=== PATIENT | female | born 1960 | race Caucasian/White ===

== ENCOUNTER 2021-07-16 06:36 | Day surgery (SDC) | payer OTHER ==
[2021-07-16] MEDS ORDERED: Propofol 200 MG/20 ML SDV IV ONE (06:37)
[2021-07-16] MEDS ORDERED: Lactated Ringers 1,000 ML IV SCH (06:45)
[2021-07-16] MEDS ORDERED: Sodium Chloride 0.9% 10 ML Syringe FLUSH PRN (06:45)
--- NOTE | 2021-07-16 08:34 | PCM.HP.2 ---
H&P History of Present Illness - General Date of Service: 07/16/21 Admit Problem/Dx: Admission Diagnosis/Problem Admission Diagnosis/Problem Colonoscopy Source of Information: Patient, Old Records History Limitations: Reports: No Limitations - History of Present Illness Initial Comments - Free Text/Narative: Here for colonoscopy - Related Data Allergies/Adverse Reactions: Allergies Allergy/AdvReac Type Severity Reaction Status Date / Time varenicline [From Chantix] Allergy Hives Verified 07/15/21 13:35 Home Medications: Home Meds Naproxen Sodium [Aleve] 220 mg PO ASDIRECTED PRN 07/15/21 [History] Multivitamin 1 tab PO DAILY 07/16/21 [History] Past Medical History HEENT History: Reports: Impaired Vision Cardiovascular History: Reports: None Respiratory History: Reports: None Gastrointestinal History: Reports: Colon Polyp, Diverticulosis Genitourinary History: Reports: None [employer] History: Reports: None Musculoskeletal History: Reports: Arthritis, Fracture Neurological History: Reports: None Psychiatric History: Reports: None Endocrine/Metabolic History: Reports: None Hematologic History: Reports: None Immunologic History: Reports: None Oncologic (Cancer) History: Reports: None Dermatologic History: Reports: None - Past Surgical History Head Surgeries/Procedures: Reports: None HEENT Surgical History: Reports: Other (See Below) Other HEENT Surgeries/Procedures: TOOTH EXTRACTION WITH CELLULITIS AND IV ABX Cardiovascular Surgical History: Reports: None Respiratory Surgical History: Reports: None GI Surgical History: Reports: Colonoscopy, EGD Female Surgical History: Reports: Cystoscopy, LEEP, Tubal Ligation Endocrine Surgical History: Reports: None Neurological Surgical History: Reports: None Musculoskeletal Surgical History: Reports: Arthroscopic Knee, Other (See Below) Other Musculoskeletal Surgeries/Procedures:: R KNEE ARTHROSCOPY 2013 Oncologic Surgical History: Reports: None Dermatological Surgical History: Reports: None Social & Family History - Tobacco Use Tobacco Use Status *Q: Current Every Day Tobacco User Years of Tobacco use: 40 Packs/Tins Daily: 0.5 - Caffeine Use Caffeine Use: Reports: Coffee - Recreational Drug Use Recreational Drug Use: No H&P Review of Systems - Review of Systems: Review Of Systems: Comprehensive ROS is negative, except as noted in HPI. Exam - Exam Exam: See Below - Vital Signs Vital Signs: Last Vital Signs Temp 97.7 F 07/16/21 08:23 Pulse 66 07/16/21 08:23 Resp 14 07/16/21 08:23 BP 93/50 L 07/16/21 08:23 Pulse Ox 97 07/16/21 08:23 Weight: 57 kg - Exam General: Alert, Oriented Lungs: Clear to Auscultation, Normal Respiratory Effort Cardiovascular: Regular Rate, Regular Rhythm GI/Abdominal Exam: Soft, Non-Tender Sepsis Event Note - Focused Exam Vital Signs: Vital Signs Temp Pulse Resp BP Pulse Ox 07/16/21 08:23 97.7 F 66 14 93/50 L 97 07/16/21 07:15 98.2 F 82 16 113/78 96 Problem List Initiated/Reviewed/Updated: Yes Orders Last 24hrs: Active Orders 24 hr Category Date Time Status Patient Status [ADT] Routine ADT 07/16/21 06:45 Active Patient to Empty Bladder [RC] ASDIRECTED Care 07/16/21 06:45 Active Verify Patient Consent Obtain [RC] ASDIRECTED Care 07/16/21 06:45 Active Nothing Per Oral Diet [DIET] Diet 07/16/21 Breakfast Ordered Lactated Ringers [Ringers, Lactated] 1,000 ml Med 07/16/21 06:45 Active IV ASDIRECTED Sodium Chloride 0.9% [Saline Flush] Med 07/16/21 06:45 Active 10 ml FLUSH ASDIRECTED PRN Peripheral IV Insertion Adult [OM.PC] Routine Oth 07/16/21 06:45 Ordered Resuscitation Status Routine Resus Stat 07/15/21 13:37 Ordered Medication Orders Lactated Ringer's (Ringers, Lactated) 1,000 mls @ 125 mls/hr IV ASDIRECTED [facility] Last Admin: 07/16/21 07:06 Dose: 125 mls/hr Documented by: SHYANNE Sodium Chloride (Sodium Chloride 0.9% 10 Ml Syringe) 10 ml FLUSH ASDIRECTED PRN PRN Reason: Keep Vein Open Assessment/Plan Comment:: FH Colon Cancer Ok to proceed with colonoscopy; risks and complications reviewed, consent obtained
--- NOTE | 2021-07-16 08:35 | PCM.OPNOTE ---
- General Post-Op/Procedure Note Date of Surgery/Procedure: 07/16/21 Operative Procedure(s): Colonoscopy Findings: few tics Pre Op Diagnosis: FH Colon Ca Post-Op Diagnosis: Same Anesthesia Technique: MAC Primary Surgeon: Juvencio Hartman Complications: None Condition: Good
--- NOTE | 2021-07-16 13:11 | OR ---
DATE OF OPERATION: 07/16/2021 SURGEON: Juvencio Hartman MD PREOPERATIVE DIAGNOSIS: Family history of colon cancer. POSTOPERATIVE DIAGNOSIS: Sigmoid diverticulosis. PROCEDURE: Colonoscopy. ANESTHESIA: IV sedation. PROCEDURE IN DETAIL: The patient was brought to the procedure room where she was placed on her left side and IV sedation administered. Digital rectal exam was performed which was normal. The colonoscope was inserted and advanced through a tight sigmoid colon with minimal difficulty. I was unable to reach the cecum without difficulty. Cecal position was confirmed by identifying the appendiceal lumen and ileocecal valve. Prep was good and surfaces were well visualized. Upon withdrawing the scope, the ascending, transverse, and descending colon were normal in appearance. The sigmoid colon had a few small diverticula present. Rectum was normal and retroflexion was normal. Air was removed and the scope withdrawn. The patient tolerated the procedure well and returned to recovery in stable condition. RECOMMENDATIONS: Recommend colon screening again in 5 years. /[id number] JENNIFER/ALEXANDRA
== END 2021-07-16 09:10 | disposition home or self-care (01) ==
LOC: FB.SDS 06:36
PROVIDERS: ATTEND Surgery
DX: Z12.11 Encounter for screening for malignant neoplasm of colon (principal); K57.30 Diverticulosis of large intestine without perforation or abscess without bleeding; F17.210 Nicotine dependence, cigarettes, uncomplicated; Z80.0 Family history of malignant neoplasm of digestive organs; Z98.890 Other specified postprocedural states; Z88.8 Allergy status to other drugs, medicaments and biological substances; Z79.899 Other long term (current) drug therapy
CPT/HCPCS: 00812-QZ; J2704; J7120